=== PATIENT | male | born 1955 | race Caucasian/White ===

== ENCOUNTER → 2016-05-15 | Outpatient (CLI) | payer BC, OTHER ==
[2016-05-15 06:49] LABS: BASO # 0.1 K/mm3 (0.0-0.2); BASO % 1.2 % (0.0-1.0); EOS # 0.2 K/mm3 (0.0-0.50); LARGE UNSTAINED CELL # 0.2 K/mm3 (0.0-0.4); LARGE UNSTAINED CELL % 2.2 % (0.0-4.0); LYMPH % 40.1 % (24.0-44.0); MEAN CORPUSCULAR HEMOGLOBIN 28.4 pg (27.0-33.0); MEAN CORPUSCULAR HGB CONC 33.2 g/dl (32.0-36.5); MEAN CORPUSCULAR VOLUME 85.5 fl (80.0-96.0); MONO # 0.6 K/mm3 (0.0-0.8); MONO % 8.6 % (0.0-5.0); NEUTROPHILS # 3.1 K/mm3 (1.8-7.7); NEUTROPHILS % 44.9 % (36.0-66.0); PLATELET COUNT, AUTOMATED 268 k/mm3 (150-450); RED CELL DISTRIBUTION WIDTH 13.4 % (11.5-14.5)
[2016-05-15 07:08] LABS: ALBUMIN 3.8 GM/DL (3.2-5.2); ALBUMIN/GLOBULIN RATIO 1.19 (1.00-1.93); ALKALINE PHOSPHATASE 81 U/L (45-117); ALT/SGPT 49 U/L (12-78); ANION GAP 7 MEQ/L (8-16); AST/SGOT 26 U/L (15-37); BILIRUBIN,TOTAL 1.4 MG/DL (0.2-1.0); BLOOD UREA NITROGEN 21 MG/DL (7-18); CALCIUM LEVEL 8.4 MG/DL (8.5-10.1); CARBON DIOXIDE LEVEL 29 MEQ/L (21-32); CHLORIDE LEVEL 105 MEQ/L (98-107); CHOLESTEROL LEVEL 228 MG/DL (<200); CREATININE FOR GFR 1.25 MG/DL (0.70-1.30); FREE T4 1.01 NG/DL (0.76-1.46); GLOMERULAR FILTRATION RATE > 60.0 (>56); GLUCOSE, FASTING 92 MG/DL (70-105); POTASSIUM SERUM 4.5 MEQ/L (3.5-5.1); SODIUM LEVEL 141 MEQ/L (136-145); TRIGLYCERIDES LEVEL 116 MG/DL (<150)
== END ==
LOC: M LAB 06:15
PROVIDERS: ATTEND Family Medicine
DX: Z13.220 Encounter for screening for lipoid disorders (principal); Z13.0 Encounter for screening for diseases of the blood and blood-forming organs and certain disorders involving the immune mechanism; Z13.29 Encounter for screening for other suspected endocrine disorder; Z12.5 Encounter for screening for malignant neoplasm of prostate
CPT/HCPCS: 36415; 80053; 80061; 84439; 84443; 85025; G0103

== ENCOUNTER → 2016-08-22 | Outpatient (CLI) | payer BC, OTHER | LOC: M LAB 08:33 | PROVIDERS: ATTEND Family Medicine | DX: E78.00 Pure hypercholesterolemia, unspecified (principal) ==

== ENCOUNTER → 2016-09-28 | Outpatient (CLI) | payer BC, OTHER ==
[2016-09-28 10:38] LABS: ALBUMIN 3.9 GM/DL (3.2-5.2); ALBUMIN/GLOBULIN RATIO 1.39 (1.00-1.93); ALKALINE PHOSPHATASE 82 U/L (45-117); ALT/SGPT 47 U/L (12-78); ANION GAP 8 MEQ/L (8-16); AST/SGOT 40 U/L (15-37); BILIRUBIN,TOTAL 1.4 MG/DL (0.2-1.0); BLOOD UREA NITROGEN 17 MG/DL (7-18); CALCIUM LEVEL 7.9 MG/DL (8.8-10.2); CARBON DIOXIDE LEVEL 28 MEQ/L (21-32); CHLORIDE LEVEL 107 MEQ/L (98-107); CHOLESTEROL LEVEL 160 MG/DL (<200); CREATININE FOR GFR 1.21 MG/DL (0.70-1.30); GLOMERULAR FILTRATION RATE > 60.0 (>49); GLUCOSE, FASTING 103 MG/DL (80-110); POTASSIUM SERUM 4.2 MEQ/L (3.5-5.1); SODIUM LEVEL 143 MEQ/L (136-145); TOTAL PROTEIN 6.7 GM/DL (6.4-8.2); TRIGLYCERIDES LEVEL 92 MG/DL (<150)
== END ==
LOC: M LAB 09:58
PROVIDERS: ATTEND Family Medicine
DX: E78.00 Pure hypercholesterolemia, unspecified (principal)

== ENCOUNTER → 2017-06-06 | Outpatient (REF) | payer OTHER | LOC: M LAB REF 09:39 | DX: L02.612 Cutaneous abscess of left foot (principal) ==

== ENCOUNTER 2017-06-08 11:04 | Emergency (ER) | payer BC, OTHER ==
[2017-06-08] MEDS: CEFTRIAXONE SOD 1 GM in APPROPRIATE DILUENT 1 EA IV (12:15)
== END 2017-06-08 13:22 | disposition home or self-care (01) ==
LOC: M ED 11:04
DX: L03.032 Cellulitis of left toe (principal); L03.042 Acute lymphangitis of left toe; Z79.2 Long term (current) use of antibiotics
CPT/HCPCS: 96374

== ENCOUNTER → 2017-06-08 | Outpatient (REF) | payer BC, OTHER | LOC: M LAB REF 13:03 | DX: L03.032 Cellulitis of left toe (principal); M10.079 Idiopathic gout, unspecified ankle and foot | CPT/HCPCS: 88108 ==

== ENCOUNTER 2017-06-09 08:02 | Emergency (ER) | payer BC, OTHER ==
[2017-06-09] MEDS: CEFTRIAXONE SOD 1 GM in APPROPRIATE DILUENT 1 EA IV (08:26)
== END 2017-06-09 09:04 | disposition home or self-care (01) ==
LOC: M ED 08:02
DX: L03.032 Cellulitis of left toe (principal); E78.00 Pure hypercholesterolemia, unspecified; Z79.2 Long term (current) use of antibiotics; Z79.899 Other long term (current) drug therapy; Z98.890 Other specified postprocedural states
CPT/HCPCS: 96365

== ENCOUNTER 2017-06-10 09:18 | Emergency (ER) | payer BC, OTHER ==
[2017-06-10] MEDS: CEFTRIAXONE SOD 1 GM in APPROPRIATE DILUENT 1 EA IV (09:50)
== END 2017-06-10 10:52 | disposition home or self-care (01) ==
LOC: M ED 09:18
DX: L03.115 Cellulitis of right lower limb (principal); E78.5 Hyperlipidemia, unspecified; Z79.899 Other long term (current) drug therapy
CPT/HCPCS: 96365

== ENCOUNTER 2017-07-10 15:01 | Emergency (ER) | payer BC, OTHER ==
[2017-07-10] MEDS: IBUPROFEN 600 MG TAB PO (17:30)
[2017-07-10 18:07] LABS: BASO # 0.1 10^3/uL (0.0-0.2); BASO % 0.3 % (0.0-1.0); EOS % 0.1 % (0.0-3.0); HEMATOCRIT 42.4 % (42.0-52.0); HEMOGLOBIN 14.4 g/dl (14.0-18.0); IMMATURE GRANULOCYTE % 0.6 % (0-3.0); LYMPH # 0.5 10^3/uL (1.5-4.5); LYMPH % 2.3 % (24.0-44.0); MEAN CORPUSCULAR HEMOGLOBIN 28.2 pg (27.0-33.0); MEAN CORPUSCULAR VOLUME 83.1 fl (80.0-96.0); MONO # 0.8 10^3/uL (0.0-0.8); MONO % 4.1 % (0.0-5.0); NEUTROPHILS # 17.8 10^3/uL (1.8-7.7); NEUTROPHILS % 92.6 % (36.0-66.0); PLATELET COUNT, AUTOMATED 211 10^3/uL (150-450); RED CELL DISTRIBUTION WIDTH 13.2 % (11.5-14.5); WHITE BLOOD COUNT 19.2 10^3/uL (4.0-10.0)
[2017-07-10 18:28] LABS: ERYTHROCYTE SEDIMENTATION RATE 4 mm/hr (0-20)
[2017-07-10 18:34] LABS: ALBUMIN 4.2 GM/DL (3.2-5.2); ALBUMIN/GLOBULIN RATIO 1.27 (1.00-1.93); ALKALINE PHOSPHATASE 91 U/L (45-117); ALT/SGPT 41 U/L (12-78); ANION GAP 8 MEQ/L (8-16); AST/SGOT 35 U/L (7-37); BILIRUBIN,TOTAL 1.6 MG/DL (0.2-1.0); BLOOD UREA NITROGEN 17 MG/DL (7-18); CALCIUM LEVEL 8.6 MG/DL (8.8-10.2); CARBON DIOXIDE LEVEL 27 MEQ/L (21-32); CHLORIDE LEVEL 100 MEQ/L (98-107); CREATININE FOR GFR 1.32 MG/DL (0.70-1.30); GLOMERULAR FILTRATION RATE 58.9 (>49); GLUCOSE, FASTING 98 MG/DL (70-100); MAGNESIUM LEVEL 1.8 MG/DL (1.8-2.4); POTASSIUM SERUM 4.1 MEQ/L (3.5-5.1); SODIUM LEVEL 135 MEQ/L (136-145); TOTAL PROTEIN 7.5 GM/DL (6.4-8.2)
[2017-07-10 19:40] LABS: APPEARANCE, URINE CLEAR (CLEAR); BACTERIA, URINE AUTO NEGATIVE (NEGATIVE); BILIRUBIN, URINE AUTO NEGATIVE (NEGATIVE); BLOOD, URINE BLOOD NEGATIVE (NEGATIVE); COLOR, URINE YELLOW (YELLOW); GLUCOSE, URINE (UA) AUTO NEGATIVE (NEGATIVE); KETONE, URINE AUTO NEGATIVE (NEGATIVE); LEUKOCYTE ESTERASE, URINE AUTO NEGATIVE (NEGATIVE); NITRITE, URINE AUTO NEGATIVE (NEGATIVE); PROTEIN, URINE AUTO NEGATIVE (NEGATIVE); RBC, URINE AUTO 1 /HPF (0-3); SQUAMOUS EPITHELIAL CELL UR AU 0 /HPF (0-6); UROBILINOGEN, URINE AUTO 0.2 mg/dL (0.0-2.0); WBC, URINE AUTO 1 /HPF (0-3)
[2017-07-10 20:00] LABS: C REACTIVE PROTEIN QUANTITATIV 0.63 MG/DL (0.00-0.30)
[2017-07-10] MEDS: CLINDAMYCIN 900 MG in APPROPRIATE DILUENT 1 EA IV (20:55)
== END 2017-07-10 22:03 | disposition home or self-care (01) ==
LOC: M ED 15:01
DX: L03.032 Cellulitis of left toe (principal); R51 Headache; M25.512 Pain in left shoulder; R20.9 Unspecified disturbances of skin sensation; E78.5 Hyperlipidemia, unspecified
CPT/HCPCS: 70450

== ENCOUNTER → 2017-10-06 | Outpatient (CLI) | payer BC, OTHER ==
[2017-10-06 13:27] LABS: BASO # 0.1 10^3/uL (0.0-0.2); BASO % 0.7 % (0.0-1.0); EOS # 0.2 10^3/uL (0.0-0.50); EOS % 3.2 % (0.0-3.0); HEMATOCRIT 42.6 % (42.0-52.0); HEMOGLOBIN 14.4 g/dl (13.5-17.5); IMMATURE GRANULOCYTE % 0.3 % (0-3.0); LYMPH # 2.9 10^3/uL (1.5-4.5); LYMPH % 40.7 % (24.0-44.0); MEAN CORPUSCULAR HEMOGLOBIN 28.2 pg (27.0-33.0); MEAN CORPUSCULAR HGB CONC 33.8 g/dl (32.0-36.5); MEAN CORPUSCULAR VOLUME 83.4 fl (80.0-96.0); MONO # 0.7 10^3/uL (0.0-0.8); MONO % 9.9 % (0.0-5.0); NEUTROPHILS # 3.3 10^3/uL (1.8-7.7); NEUTROPHILS % 45.2 % (36.0-66.0); PLATELET COUNT, AUTOMATED 287 10^3/uL (150-450); RED BLOOD COUNT 5.11 10^6/uL (4.30-6.10); RED CELL DISTRIBUTION WIDTH 13.8 % (11.5-14.5); WHITE BLOOD COUNT 7.2 10^3/uL (4.0-10.0)
[2017-10-06 13:53] LABS: ERYTHROCYTE SEDIMENTATION RATE 4 mm/hr (0-20)
[2017-10-06 15:36] LABS: BLOOD UREA NITROGEN 15 MG/DL (7-18); C REACTIVE PROTEIN QUANTITATIV < 0.30 MG/DL (0.00-0.30); CALCIUM LEVEL 8.7 MG/DL (8.8-10.2); CHLORIDE LEVEL 103 MEQ/L (98-107); CREATININE FOR GFR 1.04 MG/DL (0.70-1.30); GLUCOSE, FASTING 88 MG/DL (70-100); POTASSIUM SERUM 4.5 MEQ/L (3.5-5.1); SODIUM LEVEL 140 MEQ/L (136-145)
[2017-10-06 15:52] LABS: URIC ACID 6.2 MG/DL (3.5-7.2)
[2017-10-06 19:36] LABS: ANION GAP 9 MEQ/L (8-16); CARBON DIOXIDE LEVEL 28 MEQ/L (21-32)
== END ==
LOC: M SMT 09:59
DX: L03.012 Cellulitis of left finger (principal); M10.9 Gout, unspecified
CPT/HCPCS: 84550

== ENCOUNTER → 2017-10-09 | Outpatient (CLI) | payer OTHER, MEDICARE | LOC: M SMT 08:00 | DX: B99.9 Unspecified infectious disease (principal); Z53.8 Procedure and treatment not carried out for other reasons ==

== ENCOUNTER → 2017-10-09 | Outpatient (REF) | payer OTHER | LOC: M SFHCPLAZ 11:32 | DX: B99.9 Unspecified infectious disease (principal); Z86.14 Personal history of Methicillin resistant Staphylococcus aureus infection ==

== ENCOUNTER → 2017-10-09 | Outpatient (REF) | payer OTHER, MEDICARE | LOC: M SFHCPLAZ 10:47 | DX: Z86.14 Personal history of Methicillin resistant Staphylococcus aureus infection (principal) ==

== ENCOUNTER → 2017-10-11 | Outpatient (CLI) | payer OTHER ==
[2017-10-11 11:13] LABS: IMMUNOGLOBULIN G 1080 MG/DL (681-1648); IMMUNOGLOBULIN M 102 MG/DL (40-230); RHEUMATOID FACTOR QUANT < 10.0 IU/ML (<15.0)
[2017-10-12 10:58] LABS: HEPATITIS C VIRUS ABY INDEX 0.1 INDEX (<0.8)
== END ==
LOC: M WUC 08:44
DX: B99.9 Unspecified infectious disease (principal)
CPT/HCPCS: 82784

== ENCOUNTER → 2017-12-25 | Outpatient (REF) | payer OTHER ==
[2017-12-25 17:41] LABS: RHEUMATOID FACTOR QUANT < 10.0 IU/ML (<15.0)
[2017-12-25 17:43] LABS: CPK CREATINE PHOSPHOKINASE 188 U/L (39-308)
[2017-12-25 17:43] LABS: URIC ACID 6.5 MG/DL (3.5-7.2)
[2017-12-25 18:14] LABS: TOTAL PROTEIN,RANDOM URINE 7.9 MG/DL (0.0-12.0)
[2017-12-25 18:20] LABS: APPEARANCE, URINE CLEAR (CLEAR); BACTERIA, URINE AUTO NEGATIVE (NEGATIVE); BILIRUBIN, URINE AUTO NEGATIVE (NEGATIVE); BLOOD, URINE BLOOD NEGATIVE (NEGATIVE); COLOR, URINE YELLOW (YELLOW); GLUCOSE, URINE (UA) AUTO NEGATIVE (NEGATIVE); KETONE, URINE AUTO NEGATIVE (NEGATIVE); LEUKOCYTE ESTERASE, URINE AUTO NEGATIVE (NEGATIVE); MUCUS, URINE SMALL (NEGATIVE); NITRITE, URINE AUTO NEGATIVE (NEGATIVE); PROTEIN, URINE AUTO NEGATIVE (NEGATIVE); RBC, URINE AUTO 0 /HPF (0-3); SPECIFIC GRAVITY URINE AUTO 1.017 (1.002-1.035); SQUAMOUS EPITHELIAL CELL UR AU 0 /HPF (0-6); UROBILINOGEN, URINE AUTO 0.2 mg/dL (0.0-2.0); WBC, URINE AUTO 1 /HPF (0-3)
[2017-12-25 20:30] LABS: CHLAMYDIA DNA AMPLIFICATION NEGATIVE (NEGATIVE); GC DNA AMPLIFICATION NEGATIVE (NEGATIVE)
[2017-12-29 00:07] LABS: ANA (HEP2) Negative (.); ANTI DOUBLE STRAND-DNA AB 1 IU/mL (0-9); RNP ANTIBODY < 0.2 AI (0.0-0.9); SMITHS ANTIBODY < 0.2 AI (0.0-0.9); SSA SJOGRENS A <0.2 AI (0.0-0.9); SSB SJOGRENS B <0.2 AI (0.0-0.9)
[2017-12-30 00:07] LABS: CYCLIC CITRULLINATED PEPTIDE 38 units (0-19)
== END ==
LOC: M SFHCLERA 10:41
DX: M25.40 Effusion, unspecified joint (principal)
CPT/HCPCS: 82550

== ENCOUNTER → 2018-01-08 | Outpatient (CLI) | payer BC, OTHER | LOC: M LRY 09:52 | DX: M25.40 Effusion, unspecified joint (principal) ==

== ENCOUNTER → 2018-06-18 | Outpatient (CLI) | payer OTHER, BC ==
[~2018-06-18] MED LIST: BACT800T5 PO; CEPH500C PO; CLEO300C2 PO; COLC1CAP PO; NORCOTAB PO; VITA5ELUD PO
[2018-06-18 09:29] LABS: BASO # 0.1 10^3/uL (0.0-0.2); BASO % 0.7 % (0.0-1.0); EOS # 0.3 10^3/uL (0.0-0.50); EOS % 3.1 % (0.0-3.0); HEMATOCRIT 45.6 % (42.0-52.0); HEMOGLOBIN 15.1 g/dl (13.5-17.5); LYMPH # 2.8 10^3/uL (1.5-4.5); MEAN CORPUSCULAR HEMOGLOBIN 28.4 pg (27.0-33.0); MEAN CORPUSCULAR HGB CONC 33.1 g/dl (32.0-36.5); MEAN CORPUSCULAR VOLUME 85.7 fl (80.0-96.0); MONO # 0.9 10^3/uL (0.0-0.8); MONO % 9.4 % (0.0-5.0); NEUTROPHILS # 5.2 10^3/uL (1.8-7.7); NEUTROPHILS % 56.5 % (36.0-66.0); PLATELET COUNT, AUTOMATED 269 10^3/uL (150-450); RED BLOOD COUNT 5.32 10^6/uL (4.30-6.10); WHITE BLOOD COUNT 9.2 10^3/uL (4.0-10.0)
[2018-06-18 10:23] LABS: ALT/SGPT 60 U/L (12-78); BILIRUBIN,TOTAL 1.1 MG/DL (0.2-1.0); BLOOD UREA NITROGEN 17 MG/DL (7-18); CALCIUM LEVEL 8.5 MG/DL (8.8-10.2); CARBON DIOXIDE LEVEL 27 MEQ/L (21-32); CHLORIDE LEVEL 106 MEQ/L (98-107); CHOLESTEROL LEVEL 214 MG/DL (<200); CHOLESTEROL RISK RATIO 4.458 (<5); CREATININE FOR GFR 1.11 MG/DL (0.70-1.30); GLOMERULAR FILTRATION RATE > 60.0 (>49); GLUCOSE, FASTING 91 MG/DL (70-100); HDL CHOLESTEROL 48 MG/DL (>40); LDL CHOLESTEROL 145 MG/DL (<100); NON-HDL-C 166 MG/DL; POTASSIUM SERUM 4.7 MEQ/L (3.5-5.1); SODIUM LEVEL 141 MEQ/L (136-145); TOTAL PROTEIN 7.2 GM/DL (6.4-8.2); TRIGLYCERIDES LEVEL 103 MG/DL (<150)
[2018-06-19 14:38] LABS: PSA TOTAL 2.6 ng/mL (0.0-4.0)
== END ==
LOC: M WUC 08:10
PROVIDERS: ATTEND Physician Assistant
DX: Z00.00 Encounter for general adult medical examination without abnormal findings (principal); Z12.5 Encounter for screening for malignant neoplasm of prostate; Z13.0 Encounter for screening for diseases of the blood and blood-forming organs and certain disorders involving the immune mechanism; E78.00 Pure hypercholesterolemia, unspecified; M65.842 Other synovitis and tenosynovitis, left hand

== ENCOUNTER 2018-08-12 07:06 | Day surgery (SDC) | payer BC, OTHER ==
[~2018-08-12] VITALS: Ht 182.9 cm; Wt 97.1 kg
[~2018-08-12 07:06] MED LIST changes: +HYDR-3715 PO; +MULTLIQ7 PO; -NORCOTAB PO; +NS 1,000 ML IV ONE
[2018-08-12] MEDS ORDERED: PROPOFOL 200 MG/20 ML VIAL As Ordered ONE ×2 (08:03→08:21)
--- NOTE | 2018-08-12 08:25 | ROOR ---
Patient Name: Paco Cantrell Procedure Date: 08/12/2018 8:01 AM Date of : 1955 Age: 63 Room: [facility] Gender: Male Note Status: Finalized Procedure: Colonoscopy Indications: Screening for colorectal malignant neoplasm Providers: Anival Henderson Jr, MD Referring MD: Ondina SURESH DO Requesting Provider: Medicines: Propofol per Anesthesia Complications: No immediate complications. Procedure: Pre-Anesthesia Assessment: - Prior to the procedure, a History and Physical was performed, and patient medications and allergies were reviewed. The patient is competent. The risks and benefits of the procedure and the sedation options and risks were discussed with the patient. All questions were answered and informed consent was obtained. Patient identification and proposed procedure were verified by the physician and the nurse in the pre-procedure area and in the procedure room. Mental Status Examination: alert and oriented. Airway Examination: normal oropharyngeal airway and neck mobility. Respiratory Examination: clear to auscultation. CV Examination: normal. ASA Grade Assessment: II - A patient with mild systemic disease. After reviewing the risks and benefits, the patient was deemed in satisfactory condition to undergo the procedure. The anesthesia plan was to use moderate sedation / analgesia (conscious sedation). Immediately prior to administration of medications, the patient was re-assessed for adequacy to receive sedatives. The heart rate, respiratory rate, oxygen saturations, blood pressure, adequacy of pulmonary ventilation, and response to care were monitored throughout the procedure. The physical status of the patient was re-assessed after the procedure. The Colonoscope was introduced through the anus and advanced to the terminal ileum. The colonoscopy was performed without difficulty. The patient tolerated the procedure well. The quality of the bowel preparation was adequate. Findings: Multiple small and large-mouthed diverticula were found in the sigmoid colon. A few small and large-mouthed diverticula were found in the transverse colon and ascending colon. A diminutive polyp was found in the recto-sigmoid colon. The polyp was hyperplastic. The polyp was removed with a cold snare. Resection and retrieval were complete. The rectum, descending colon, cecum, appendiceal orifice, ileocecal valve and ileum appeared normal. Impression: - Diverticulosis in the sigmoid colon. - Diverticulosis in the transverse colon and in the ascending colon. - One diminutive polyp at the recto-sigmoid colon, removed with a cold snare. Resected and retrieved. - The rectum, descending colon, cecum, appendiceal orifice, ileocecal valve and terminal ileum are normal. Recommendation: - Discharge patient to home (ambulatory). - Repeat colonoscopy in 5-10 years for surveillance based on pathology results. Anival Henderson MD Anival Henderson Jr, MD 08/12/2018 8:24:42 AM Electronically signed by Anival Henderson Jr, MD Number of Addenda: 0 Note Initiated On: 08/12/2018 8:01 AM Estimated Blood Loss: Estimated blood loss: none.
[2018-08-12 08:53] VITALS: BP 132/80
== END 2018-08-12 08:53 | disposition home or self-care (01) ==
LOC: M OPP 07:06
PROVIDERS: ATTEND Surgery
DX: K63.5 Polyp of colon (principal); K57.30 Diverticulosis of large intestine without perforation or abscess without bleeding; Z12.11 Encounter for screening for malignant neoplasm of colon

== ENCOUNTER → 2018-08-27 | Outpatient (CLI) | payer BC, OTHER ==
[~2018-08-27] MED LIST changes: -NS 1,000 ML IV ONE
--- NOTE | 2018-08-27 14:16 | REP ---
History of bone cyst. There are no priors for comparison. FINDINGS: Three views of the shoulder were performed. The acromioclavicular and glenohumeral relationships are within normal limits. There is no acute fracture or destructive osseous lesions. Degenerative changes seen involving the AC joint which are mild and there is evidence of minimal possible cystic degenerative change involving the superolateral humeral head subjacent to the greater tuberosity. There is no evidence of an acromial cyst on this plain film exam. Electronically Signed by Brian Jha DO 08/27/2018 02:43 P
== END ==
LOC: M SMT 11:24
PROVIDERS: ATTEND Family Medicine
DX: M85.611 Other cyst of bone, right shoulder (principal)

== ENCOUNTER → 2020-05-07 | Outpatient (CLI) | payer SELFPAY | LOC: M LABSMTC 14:33 | PROVIDERS: ATTEND Pediatrics | DX: Z20.822 Contact with and (suspected) exposure to COVID-19 (principal) ==

== ENCOUNTER 2023-04-24 19:50 | Emergency (ER) | payer MEDICARE, OTHER, BC ==
[~2023-04-24] VITALS: Ht 182.9 cm; Wt 103.1 kg
[2023-04-24 19:54] VITALS: TEMP 98.3
[2023-04-24] MEDS ORDERED: EZET10TA21 (20:00)
[2023-04-25 03:15] VITALS: BP 156/85
[2023-04-25 03:30] VITALS: O2SAT 97
== END 2023-04-25 03:38 | disposition home or self-care (01) ==
LOC: M ED 19:50
DX: T18.9XXA Foreign body of alimentary tract, part unspecified, initial encounter (principal); Z79.899 Other long term (current) drug therapy

== ENCOUNTER → 2023-07-24 | Outpatient (CLI) | payer MEDICARE, BC ==
[~2023-07-24] MED LIST changes: +EZET10TA21
== END ==
LOC: M WUC 10:58
PROVIDERS: ATTEND Internal Medicine Rheumatology
DX: M19.071 Primary osteoarthritis, right ankle and foot (principal); M19.072 Primary osteoarthritis, left ankle and foot; R76.8 Other specified abnormal immunological findings in serum; M25.50 Pain in unspecified joint

== ENCOUNTER → 2023-07-24 | Outpatient (REF) | payer MEDICARE, BC ==
[2023-07-24 12:22] LABS: APPEARANCE, URINE HAZY (CLEAR); BACTERIA, URINE AUTO NEGATIVE (NEGATIVE); BILIRUBIN, URINE AUTO NEGATIVE (NEGATIVE); BLOOD, URINE BLOOD NEGATIVE (NEGATIVE); COLOR, URINE YELLOW (YELLOW); GLUCOSE, URINE (UA) AUTO NEGATIVE (NEGATIVE); KETONE, URINE AUTO NEGATIVE (NEGATIVE); LEUKOCYTE ESTERASE, URINE AUTO NEGATIVE (NEGATIVE); NITRITE, URINE AUTO NEGATIVE (NEGATIVE); PROTEIN, URINE AUTO NEGATIVE (NEGATIVE); RBC, URINE AUTO 0 /HPF (0-3); SPECIFIC GRAVITY URINE AUTO 1.014 (1.002-1.035); SQUAMOUS EPITHELIAL CELL UR AU 0 /HPF (0-6); UROBILINOGEN, URINE AUTO 0.2 mg/dL (0.0-2.0); WBC, URINE AUTO 0 /HPF (0-3)
[2023-07-24 12:28] LABS: BASO # 0.1 10^3/uL (0.0-0.2); BASO % 0.8 % (0.0-1.0); EOS # 0.3 10^3/uL (0.0-0.5); EOS % 4.1 % (0.0-3.0); HEMATOCRIT 44.7 % (42.0-52.0); HEMOGLOBIN 15.7 g/dl (13.5-17.5); LYMPH # 2.2 10^3/uL (1.5-5.0); LYMPH % 34.5 % (24.0-44.0); MEAN CORPUSCULAR HEMOGLOBIN 31.3 pg (27.0-33.0); MEAN CORPUSCULAR HGB CONC 35.1 g/dl (32.0-36.5); MONO # 0.6 10^3/uL (0.0-0.8); NEUTROPHILS # 3.2 10^3/uL (1.5-8.5); NEUTROPHILS % 50.4 % (36.0-66.0); PLATELET COUNT, AUTOMATED 266 10^3/uL (150-450); RED BLOOD COUNT 5.02 10^6/uL (4.30-6.10); WHITE BLOOD COUNT 6.4 10^3/uL (4.0-10.0)
[2023-07-24 12:29] LABS: URIC ACID 7.3 MG/DL (3.7-9.2)
[2023-07-24 12:30] LABS: C REACTIVE PROTEIN QUANTITATIV < 0.40 MG/DL (<1.0)
[2023-07-24 12:31] LABS: COMPLEMENT C3 116.5 MG/DL (90.0-170.0); COMPLEMENT C4 21.8 MG/DL (12-36)
[2023-07-24 12:32] LABS: ALKALINE PHOSPHATASE 81 U/L (46-116); ALT/SGPT 41 U/L (7.0-40); AST/SGOT 27 U/L (<34); BILIRUBIN,TOTAL 1.2 MG/DL (0.3-1.2); BLOOD UREA NITROGEN 22 MG/DL (9-23); CALCIUM LEVEL 9.3 MG/DL (8.3-10.6); CARBON DIOXIDE LEVEL 29 MMOL/L (20-31); CHLORIDE LEVEL 103 MMOL/L (98-107); CREATININE FOR GFR 0.95 MG/DL (0.70-1.30); GLOMERULAR FILTRATION RATE > 60.0 (>49); GLUCOSE, FASTING 103 MG/DL (74-106); POTASSIUM SERUM 4.4 MMOL/L (3.5-5.1); SODIUM LEVEL 136 MMOL/L (136-145); TOTAL PROTEIN 6.9 G/DL (5.7-8.2)
[2023-07-24 12:44] LABS: ERYTHROCYTE SEDIMENTATION RATE 7 mm/hr (0-20)
[2023-07-24 12:49] LABS: TOTAL PROTEIN,RANDOM URINE 7.9 MG/DL (0.0-14.0)
[2023-07-24 12:54] LABS: CREATININE,RANDOM URINE 80.6 MG/DL
== END ==
LOC: M SFHCRHEU 08:04
PROVIDERS: ATTEND Internal Medicine Rheumatology
DX: R76.8 Other specified abnormal immunological findings in serum (principal); M25.50 Pain in unspecified joint

== ENCOUNTER 2023-11-26 08:53 | Day surgery (SDC) | payer MEDICARE, BC ==
[~2023-11-26] VITALS: Ht 182.9 cm; Wt 92.7 kg
[~2023-11-26 08:53] MED LIST changes: +EZET10TA21 PO; +NS 1,000 ML IV ONE; +[UNRECOGNIZED DRUG - OTHER] PO
[2023-11-26] MEDS ORDERED: propofoL 500 MG/50 ML VIAL As Ordered ONE (09:55)
[2023-11-26] MEDS ORDERED: LIDOCAINE 2% 100MG/5ML SDV (FOR ANES.) As Ordered ONE (09:55)
[2023-11-26] MEDS ORDERED: GLUCAGON INJ 1MG VIAL As Ordered ONE (10:12)
[2023-11-26 10:50] VITALS: BP 111/71; TEMP 97.2; O2SAT 95
== END 2023-11-26 11:05 | disposition home or self-care (01) ==
LOC: M OPP 08:53
PROVIDERS: ATTEND Surgery
DX: Z12.11 Encounter for screening for malignant neoplasm of colon (principal); Z86.010 Personal history of colon polyps; D12.6 Benign neoplasm of colon, unspecified; K57.30 Diverticulosis of large intestine without perforation or abscess without bleeding; Z79.02 Long term (current) use of antithrombotics/antiplatelets
CPT/HCPCS: 45385; 88305; J1610

== ENCOUNTER 2024-08-27 18:31 | Emergency (ER) | payer MEDICARE, BC ==
[~2024-08-27] VITALS: Ht 182.9 cm; Wt 100.0 kg
[~2024-08-27 18:31] MED LIST changes: -NS 1,000 ML IV ONE
[2024-08-27] MEDS: FLUORESCEIN OPHTH 1MG STRIP OS ONE (20:00)
[2024-08-27] MEDS: TETRACAINE 0.5% OPHTH SOLN 4ML OS ONE (20:00)
[2024-08-27] MEDS: BOOSTRIX VACCINE (TETANUS/DIPHTH/ACEL. PERTUSSIS) 0.5ML SYR IM.IMMUN ONE (20:30)
[2024-08-27] MEDS: ERYTHROMYCIN OPHTH OINT OS ONE (20:30)
[2024-08-27] MEDS ORDERED: ERYT5OIN25 OP (20:34)
[2024-08-27 20:40] VITALS: BP 145/74; TEMP 98.5; O2SAT 98
== END 2024-08-27 20:41 | disposition home or self-care (01) ==
LOC: M ED 18:31
DX: S05.02XA Injury of conjunctiva and corneal abrasion without foreign body, left eye, initial encounter (principal); Y92.9 Unspecified place or not applicable; Y93.9 Activity, unspecified; Y99.9 Unspecified external cause status; E78.5 Hyperlipidemia, unspecified; Z23 Encounter for immunization; Z79.2 Long term (current) use of antibiotics; Z79.899 Other long term (current) drug therapy